=== PATIENT | female | born 1990 | race Hispanic/Latino ===

== ENCOUNTER 2017-05-31 16:51 | Emergency (ER) | payer BC ==
[2017-05-31 17:00] VITALS: BP 144/104; PULSE 96; RESP 16; TEMP 98.6; O2SAT 99; BMI 20.7
--- NOTE | 2017-05-31 17:29 | ED PDOC ---
HPI: Skin/Bite Injury Time Seen by Provider: 05/31/17 16:58 Chief Complaint (Nursing): Bite Chief Complaint (Provider): Dog Bite History Per: Patient History/Exam Limitations: no limitations Onset/Duration Of Symptoms: Mins Current Symptoms Are (Timing): Still Present Additional Complaint(s): Precious Johns is a 26 year old female that was brought to the ED via EMS after her dog bit her. Patient states that she was attempting to take food out of her dog's mouth when her dog bit her on both forearms. Patient's wounds were dressed by EMS prior to arrival in ED. Of Note: Patient's dog was taken away by police. Past Medical History Reviewed: Historical Data, Nursing Documentation, Vital Signs Vital Signs: Last Vital Signs Temp 98.6 F 05/31/17 16:57 Pulse 96 H 05/31/17 16:57 Resp 16 05/31/17 16:57 BP 144/104 H 05/31/17 16:57 Pulse Ox 99 05/31/17 17:38 - Family History Family History: States: Unknown Family Hx - Immunization History Hx Tetanus Toxoid Vaccination: Yes Hx Influenza Vaccination: No Hx Pneumococcal Vaccination: No - Home Medications Home Medications: Ambulatory Orders Medication Instructions Recorded Amoxicillin/Clavulanate [Augmentin 1 tab PO BID #20 tab 08/28/16 875 MG-125 MG] No Other Home Meds 1 / .ROUTE / 08/28/16 Amoxicillin/Clavulanate [Augmentin 1 tab PO BID #20 tab 05/31/17 875 MG-125 MG] - Allergies Allergies/Adverse Reactions: Allergies Allergy/AdvReac Type Severity Reaction Status Date / Time No Known Allergies Allergy Verified 08/28/16 19:58 Review of Systems Musculoskeletal: Positive for: Other (bites to bilateral arms) Physical Exam - Reviewed Nursing Documentation Reviewed: Yes Vital Signs Reviewed: Yes - Physical Exam Appears: Positive for: Non-toxic, No Acute Distress Head Exam: Positive for: ATRAUMATIC, NORMOCEPHALIC Skin: Positive for: Normal Color, Warm Eye Exam: Positive for: EOMI, PERRL Pulses-Radial (L): 2+ Pulses-Radial (R): 2+ Extremity: Positive for: Normal ROM, Swelling (localized edema around puncture wounds), Other (Two puncture wounds present on both right and left forearms) Neurologic/Psych: Positive for: Alert, Oriented. Negative for: Motor/Sensory Deficits - ECG O2 Sat by Pulse Oximetry: 99 (RA) Pulse Ox Interpretation: Normal Medical Decision Making Medical Decision Making: Impression: Dog Bite Plan: * Irrigated puncture wounds and applied antibiotic ointment. Wounds newly dressed. * Patient given Rx for Augmentin and has no further complaints, patient is stable for discharge home. Of Note: Police informed patient that the dog is at [facility], and the dog is listed there under her name. Dog is free to be picked up at any time, there are no stipulations. Scribe Attestation: Documented by Leah Galaviz, acting as a scribe for Shauna Qureshi PA-C. Provider Scribe Attestation: All medical record entries made by the Scribe were at my direction and personally dictated by me. I have reviewed the chart and agree that the record accurately reflects my personal performance of the history, physical exam, medical decision making, and the department course for this patient. I have also personally directed, reviewed, and agree with the discharge instructions and disposition. Disposition - Clinical Impression Clinical Impression: Dog bite - Patient ED Disposition Is Patient to be Admitted: No - Disposition Disposition: Routine/Home Disposition Time: 17:25 Condition: STABLE Prescriptions: Amoxicillin/Clavulanate [Augmentin 875 MG-125 MG] 1 tab PO BID #20 tab Instructions: Animal Bite (ED) Forms: LifeBook (Amharic)
== END 2017-05-31 18:15 | disposition home or self-care (01) ==
LOC: H.ER 16:51
DX: S51.801A Unspecified open wound of right forearm, initial encounter (principal); S51.802A Unspecified open wound of left forearm, initial encounter; W54.0XXA Bitten by dog, initial encounter; Y92.89 Other specified places as the place of occurrence of the external cause